=== PATIENT | male | born 1970 | race African-American/Black ===

== ENCOUNTER 2021-12-04 03:19 | Inpatient (IN) | payer SELFPAY ==
[2021-12-04 06:29] VITALS: BMI 45.8
[2021-12-04] MEDS ORDERED: Ondansetron PF 4 MG/2 ML Vial IVP PRN (08:09)
[2021-12-04] MEDS ORDERED: Enoxaparin Sodium 40 MG/0.4 ML SYRINGE SC SCH (09:00)
[2021-12-04 09:38] LABS: Anion Gap 14 mmol/L (10-20); BUN (Urea Nitrogen) 12 mg/dL (8.4-25.7); Calc. Creatinine Clearance 139 mL/min (70-130); Calcium 8.7 mg/dL (7.8-10.44); Carbon Dioxide 31 mmol/L (22-29); Cardiac Risk 3.8 (Less than 4.5); Chloride 102 mmol/L (98-107); Cholesterol 122 mg/dl (< 200 Desired); Estimated GFR 66; Glucose 155 mg/dL (70-105); HDL Cholesterol 32 mg/dL (>60 Neg Risk); LDL Cholesterol, Calculated 72 mg/dL; Sodium 144 mmol/L (136-145); Triglycerides 89 mg/dL (Less than 150)
[2021-12-04 09:50] LABS: Hemoglobin A1c 6.5 % (4.0-6.0)
[2021-12-04 09:56] LABS: Troponin I 0.563 ng/mL (< 0.028)
[2021-12-04 09:57] LABS: Potassium 2.9 mmol/L (3.5-5.1)
[2021-12-04] MEDS: Azithromycin 500 MG in Sodium Chloride 0.9% 250 ML 250 ML IVPB SCH (10:08)
[2021-12-04] MEDS: Aspirin 81 mg Enteric Coated Tablet PO SCH ×2 (10:10→10:17)
[2021-12-04] MEDS ORDERED: Potassium Chloride 20 MEQ TAB PO SCH (10:15)
[2021-12-04] MEDS: Potassium Chloride 20 MEQ in Premix Bag 1 BAG IVPB SCH ×3 (11:44→12:56)
[2021-12-04] MEDS ORDERED: Enoxaparin Sodium 100 MG/ML SYRINGE SC SCH ×2 (12:40→12:45)
[2021-12-04 12:45] LABS: Troponin I 0.593 ng/mL (< 0.028)
[2021-12-04] MEDS ORDERED: Spironolactone 25 MG TAB PO SCH (12:45)
[2021-12-04] MEDS ORDERED: Furosemide 40 MG/4 ML VIAL SLOW IVP SCH (12:45)
[2021-12-04] MEDS: Potassium Chloride 20 MEQ in Sodium Chloride 0.9% 250 ML 250 ML IV SCH ×2 (13:14→17:28)
[2021-12-04] MEDS: Acetaminophen 325 MG TAB PO PRN ×2 (15:33→20:29)
[2021-12-04 18:29] LABS: Troponin I 0.905 ng/mL (< 0.028)
[2021-12-04] MEDS: Atorvastatin Calcium 40 MG TAB PO SCH (20:29)
[2021-12-04] MEDS: Benzonatate 100 MG CAP PO SCH (20:30)
[2021-12-04] MEDS: Enoxaparin Sodium 100 MG/ML SYRINGE SC SCH (20:30)
[2021-12-04] MEDS ORDERED: guaiFENesin ER 600 MG TAB PO SCH (21:00)
[2021-12-05] MEDS: cefTRIAXone\\ROCEPHIN 1 GM in Sodium Chloride 0.9% 100 ML IVPB SCH (02:11)
[2021-12-05 05:14] LABS: #Eosinphils 0.2 thou/uL (0.0-0.7); #Lymphocytes 1.3 thou/uL (1.20-3.40); #Monocytes 0.4 thou/uL (0.11-0.59); #Neutrophils 10.5 thou/uL (1.40-6.50); %Basophils 0.2 % (0.0-1.0); %Eosinophils 1.7 % (0.0-10.0); %Lymphocytes 10.2 % (21.0-51.0); %Monocytes 3.4 % (0.0-10.0); %Neutrophils 84.5 % (42.0-75.0); Hemoglobin 12.4 g/dL (14.0-18.0); Mean Corpuscular HGB CONC 32.1 g/dL (32.0-36.0); Mean Corpuscular Hemoglobin 26.7 pg (27.0-31.0); Mean Corpuscular Volume 83.2 fL (78.0-98.0); Mean Platelet Volume 10.3 fL (7.4-10.4); Platelet Count 177 thou/uL (130-400); RBC Distribution Width 19.1 % (11.5-14.5); Red Blood Cell (RBC) Count 4.65 mill/uL (4.70-6.10); White Blood Cell (WBC) Count 12.4 thou/uL (4.8-10.8)
[2021-12-05 05:28] LABS: Anion Gap 12 mmol/L (10-20); BUN (Urea Nitrogen) 10 mg/dL (8.4-25.7); Calc. Creatinine Clearance 155 mL/min (70-130); Calcium 8.6 mg/dL (7.8-10.44); Carbon Dioxide 33 mmol/L (22-29); Chloride 102 mmol/L (98-107); Estimated GFR 75; Glucose 126 mg/dL (70-105); Potassium 3.1 mmol/L (3.5-5.1); Sodium 144 mmol/L (136-145)
[2021-12-05 05:29] LABS: Magnesium 1.6 mg/dL (1.6-2.6)
[2021-12-05] MEDS: Furosemide 20 MG/2 ML VIAL SLOW IVP SCH ×2 (05:53→15:51)
[2021-12-05] MEDS: Spironolactone 25 MG TAB PO SCH (08:29)
[2021-12-05] MEDS: Aspirin 81 mg Enteric Coated Tablet PO SCH (08:29)
[2021-12-05] MEDS: Enoxaparin Sodium 100 MG/ML SYRINGE SC SCH ×2 (08:30→21:21)
[2021-12-05] MEDS: guaiFENesin ER 600 MG TAB PO SCH ×2 (08:46→21:21)
[2021-12-05] MEDS ORDERED: Potassium Chloride 20 MEQ TAB PO SCH (09:00)
[2021-12-05] MEDS ORDERED: Carvedilol 6.25 MG TAB PO SCH (10:15)
[2021-12-05] MEDS ORDERED: Amlodipine 5 MG TAB PO SCH (10:15)
[2021-12-05] MEDS: Azithromycin 500 MG in Sodium Chloride 0.9% 250 ML 250 ML IVPB SCH (10:40)
[2021-12-05] MEDS: Benzonatate 100 MG CAP PO SCH ×3 (10:47→21:21)
[2021-12-05] MEDS: Carvedilol 6.25 MG TAB PO SCH (17:55)
[2021-12-05] MEDS: Atorvastatin Calcium 40 MG TAB PO SCH (21:21)
[2021-12-06] MEDS: cefTRIAXone\\ROCEPHIN 1 GM in Sodium Chloride 0.9% 100 ML IVPB SCH (02:08)
[2021-12-06 05:24] LABS: #Eosinphils 0.3 thou/uL (0.0-0.7); #Lymphocytes 1.4 thou/uL (1.20-3.40); #Monocytes 0.5 thou/uL (0.11-0.59); #Neutrophils 8.9 thou/uL (1.40-6.50); %Basophils 0.2 % (0.0-1.0); %Eosinophils 2.3 % (0.0-10.0); %Lymphocytes 12.5 % (21.0-51.0); %Monocytes 4.8 % (0.0-10.0); %Neutrophils 80.2 % (42.0-75.0); Hemoglobin 10.9 g/dL (14.0-18.0); Mean Corpuscular HGB CONC 32.6 g/dL (32.0-36.0); Mean Corpuscular Hemoglobin 26.8 pg (27.0-31.0); Mean Corpuscular Volume 82.3 fL (78.0-98.0); Platelet Count 181 thou/uL (130-400); RBC Distribution Width 18.6 % (11.5-14.5); Red Blood Cell (RBC) Count 4.08 mill/uL (4.70-6.10); White Blood Cell (WBC) Count 11.1 thou/uL (4.8-10.8)
[2021-12-06 05:47] LABS: Anion Gap 13 mmol/L (10-20); BUN (Urea Nitrogen) 14 mg/dL (8.4-25.7); Calc. Creatinine Clearance 131 mL/min (70-130); Calcium 8.7 mg/dL (7.8-10.44); Carbon Dioxide 31 mmol/L (22-29); Chloride 101 mmol/L (98-107); Estimated GFR 62; Glucose 153 mg/dL (70-105); Potassium 3.1 mmol/L (3.5-5.1); Sodium 142 mmol/L (136-145)
[2021-12-06] MEDS: Furosemide 20 MG/2 ML VIAL SLOW IVP SCH ×2 (06:18→15:21)
[2021-12-06] MEDS: Aspirin 81 mg Enteric Coated Tablet PO SCH (08:56)
[2021-12-06] MEDS: guaiFENesin ER 600 MG TAB PO SCH ×2 (08:56→20:57)
[2021-12-06] MEDS: Benzonatate 100 MG CAP PO SCH ×3 (08:56→20:57)
[2021-12-06] MEDS: Carvedilol 6.25 MG TAB PO SCH ×2 (08:57→18:11)
[2021-12-06] MEDS: Spironolactone 25 MG TAB PO SCH (08:57)
[2021-12-06] MEDS: Amlodipine 5 MG TAB PO SCH (08:57)
[2021-12-06] MEDS: Enoxaparin Sodium 100 MG/ML SYRINGE SC SCH (08:58)
[2021-12-06] MEDS ORDERED: Azithromycin 500 MG in Sodium Chloride 0.9% 250 ML 250 ML IVPB SCH (09:00)
[2021-12-06] MEDS ORDERED: Potassium Chloride 20 MEQ TAB PO SCH (15:00)
[2021-12-06] MEDS: Cefdinir 300 MG CAP PO SCH (20:57)
[2021-12-06] MEDS: Atorvastatin Calcium 40 MG TAB PO SCH (20:57)
[2021-12-07 04:28] LABS: #Eosinphils 0.4 thou/uL (0.0-0.7); #Lymphocytes 1.3 thou/uL (1.20-3.40); #Monocytes 0.6 thou/uL (0.11-0.59); #Neutrophils 6.3 thou/uL (1.40-6.50); %Basophils 0.3 % (0.0-1.0); %Eosinophils 4.5 % (0.0-10.0); %Lymphocytes 14.9 % (21.0-51.0); %Monocytes 6.6 % (0.0-10.0); %Neutrophils 73.7 % (42.0-75.0); Hemoglobin 11.3 g/dL (14.0-18.0); Mean Corpuscular HGB CONC 31.7 g/dL (32.0-36.0); Mean Corpuscular Hemoglobin 26.2 pg (27.0-31.0); Mean Corpuscular Volume 82.7 fL (78.0-98.0); Mean Platelet Volume 9.8 fL (7.4-10.4); Platelet Count 189 thou/uL (130-400); RBC Distribution Width 18.5 % (11.5-14.5); White Blood Cell (WBC) Count 8.6 thou/uL (4.8-10.8)
[2021-12-07 04:51] LABS: Anion Gap 12 mmol/L (10-20); BUN (Urea Nitrogen) 14 mg/dL (8.4-25.7); Calc. Creatinine Clearance 155 mL/min (70-130); Calcium 8.9 mg/dL (7.8-10.44); Carbon Dioxide 30 mmol/L (22-29); Chloride 102 mmol/L (98-107); Estimated GFR 75; Glucose 146 mg/dL (70-105); Potassium 3.4 mmol/L (3.5-5.1); Sodium 141 mmol/L (136-145)
[2021-12-07] MEDS: Furosemide 20 MG/2 ML VIAL SLOW IVP SCH (06:17)
[2021-12-07] MEDS ORDERED: Potassium Chloride 20 MEQ TAB PO SCH (08:00)
[2021-12-07] MEDS: Amlodipine 5 MG TAB PO SCH (08:47)
[2021-12-07] MEDS: Aspirin 81 mg Enteric Coated Tablet PO SCH (08:47)
[2021-12-07] MEDS: Carvedilol 6.25 MG TAB PO SCH (08:47)
[2021-12-07] MEDS: Spironolactone 25 MG TAB PO SCH (08:47)
[2021-12-07] MEDS: Cefdinir 300 MG CAP PO SCH (08:48)
[2021-12-07] MEDS: guaiFENesin ER 600 MG TAB PO SCH (08:48)
[2021-12-07] MEDS: Benzonatate 100 MG CAP PO SCH ×2 (08:48→14:15)
[2021-12-07] MEDS ORDERED: Azithromycin 250 MG TAB PO SCH (09:00)
[2021-12-07] MEDS ORDERED: Enoxaparin Sodium 40 MG/0.4 ML SYRINGE SC SCH (09:00)
[2021-12-07] MEDS ORDERED: Lisinopril 10 MG TAB PO SCH (10:15)
[2021-12-07 11:29] VITALS: BP 137/83; TEMP 97.5
[2021-12-08] MEDS ORDERED: Furosemide 40 MG TAB PO SCH (07:30)
[2021-12-08] MEDS ORDERED: Potassium Chloride 20 MEQ TAB PO SCH (08:00)
[2021-12-08] MEDS ORDERED: Lisinopril 5 MG TAB PO SCH (09:00)
== END 2021-12-07 15:10 | disposition home or self-care (01) | DRG 871 ==
LOC: 2SW 03:19 → OBSVTOIN 08:09
PROVIDERS: ADMIT Internal Medicine; ATTEND Internal Medicine
DX: A41.9 Sepsis, unspecified organism (principal); J96.01 Acute respiratory failure with hypoxia; J18.9 Pneumonia, unspecified organism; I50.33 Acute on chronic diastolic (congestive) heart failure; I21.A1 Myocardial infarction type 2; Z68.42 Body mass index [BMI] 45.0-49.9, adult; Z20.822 Contact with and (suspected) exposure to COVID-19; R65.20 Severe sepsis without septic shock; E66.01 Morbid (severe) obesity due to excess calories; E87.6 Hypokalemia; I11.0 Hypertensive heart disease with heart failure; Z98.890 Other specified postprocedural states; Z87.891 Personal history of nicotine dependence; Z83.3 Family history of diabetes mellitus; Z79.899 Other long term (current) drug therapy
CPT/HCPCS: 36415; 80048; 80061; 83036; 83735; 84145; 85025; 87070; 87205; 87804; 93005; 93010; 93306; 94640; J0456; J0696; J1650; J1940; J3480; J3490; J7050; J7620

== ENCOUNTER 2022-02-06 17:55 | Inpatient (IN) | payer SELFPAY ==
[~2022-02-06 17:55] MED LIST: Iopamidol-370 76% 500 ML 1 ML ONE
[2022-02-06 18:23] LABS: #Eosinphils 0.2 thou/uL (0.0-0.7); #Lymphocytes 1.9 thou/uL (1.20-3.40); #Monocytes 0.6 thou/uL (0.11-0.59); #Neutrophils 5.4 thou/uL (1.40-6.50); %Basophils 0.4 % (0.0-1.0); %Eosinophils 2.9 % (0.0-10.0); %Lymphocytes 23.2 % (21.0-51.0); %Monocytes 7.6 % (0.0-10.0); %Neutrophils 65.8 % (42.0-75.0); Hemoglobin 11.7 g/dL (14.0-18.0); Mean Corpuscular HGB CONC 32.6 g/dL (32.0-36.0); Mean Corpuscular Hemoglobin 27.3 pg (27.0-31.0); Mean Corpuscular Volume 83.9 fL (78.0-98.0); Mean Platelet Volume 9.6 fL (7.4-10.4); Platelet Count 215 thou/uL (130-400); RBC Distribution Width 18.2 % (11.5-14.5); Red Blood Cell (RBC) Count 4.27 mill/uL (4.70-6.10); White Blood Cell (WBC) Count 8.1 thou/uL (4.8-10.8)
[2022-02-06 18:48] LABS: ALT (SGPT) 34 U/L (8-55); AST (SGOT) 25 U/L (5-34); Albumin 3.9 g/dL (3.5-5.0); Alkaline Phosphatase 71 U/L (40-110); Anion Gap 14 mmol/L (10-20); BUN (Urea Nitrogen) 19 mg/dL (8.4-25.7); Bilirubin, Total 0.8 mg/dL (0.2-1.2); Calc. Creatinine Clearance 0 mL/min (70-130); Calcium 9.1 mg/dL (7.8-10.44); Carbon Dioxide 29 mmol/L (22-29); Chloride 103 mmol/L (98-107); Estimated GFR 56; Globulin 3.2 g/dL (2.4-3.5); Glucose 114 mg/dL (70-105); Lipase 13 U/L (8-78); Potassium 3.1 mmol/L (3.5-5.1); Protein, Total 7.1 g/dL (6.0-8.3); Sodium 143 mmol/L (136-145)
[2022-02-06] MEDS ORDERED: Digoxin 0.5 MG/2 ML AMP ONE (19:52)
[2022-02-06] MEDS ORDERED: Furosemide 40 MG/4 ML VIAL ONE (19:52)
[2022-02-06] MEDS ORDERED: Metoprolol Tartrate 5 MG/5 ML VIAL ONE (19:52)
[2022-02-06] MEDS ORDERED: Magnesium 2 GM/50 ML BAG (IN WATER) ONE (19:52)
[2022-02-06] MEDS ORDERED: Acetaminophen 325 MG TAB PO PRN (21:58)
[2022-02-06] MEDS ORDERED: Diltiazem 125 MG/25 ML ONE (21:58)
[2022-02-06] MEDS ORDERED: Ondansetron PF 4 MG/2 ML Vial IVP PRN (21:58)
[2022-02-06] MEDS ORDERED: Potassium Chloride 20 MEQ TAB ONE (21:58)
[2022-02-06] MEDS ORDERED: Diltiazem 125 MG in Sodium Chloride 0.9% 100 ML IVPB SCH (22:15)
[2022-02-06 22:21] LABS: Troponin I 0.014 ng/mL (< 0.028)
[2022-02-06 22:36] LABS: Magnesium 2.4 mg/dL (1.6-2.6)
[2022-02-07] MEDS: Heparin 10,000 UNITS/ 10 ML VIAL SLOW IVP SCH ×3 (00:30→16:22)
[2022-02-07] MEDS: Heparin 25,000 units/D5W 500 ML IVPB SCH ×2 (00:31→20:34)
[2022-02-07 04:52] LABS: #Eosinphils 0.3 thou/uL (0.0-0.7); #Lymphocytes 1.6 thou/uL (1.20-3.40); #Monocytes 0.5 thou/uL (0.11-0.59); #Neutrophils 6.3 thou/uL (1.40-6.50); %Basophils 0.5 % (0.0-1.0); %Eosinophils 3.4 % (0.0-10.0); %Lymphocytes 18.6 % (21.0-51.0); %Monocytes 6.1 % (0.0-10.0); %Neutrophils 71.4 % (42.0-75.0); Hemoglobin 12.1 g/dL (14.0-18.0); Mean Corpuscular HGB CONC 32.5 g/dL (32.0-36.0); Mean Corpuscular Hemoglobin 27.2 pg (27.0-31.0); Mean Corpuscular Volume 83.8 fL (78.0-98.0); Mean Platelet Volume 9.7 fL (7.4-10.4); Platelet Count 208 thou/uL (130-400); RBC Distribution Width 18.3 % (11.5-14.5); Red Blood Cell (RBC) Count 4.44 mill/uL (4.70-6.10); White Blood Cell (WBC) Count 8.8 thou/uL (4.8-10.8)
[2022-02-07 05:07] LABS: Anion Gap 16 mmol/L (10-20); BUN (Urea Nitrogen) 13 mg/dL (8.4-25.7); Calc. Creatinine Clearance 161 mL/min (70-130); Calcium 8.5 mg/dL (7.8-10.44); Carbon Dioxide 29 mmol/L (22-29); Chloride 103 mmol/L (98-107); Estimated GFR 76; Glucose 108 mg/dL (70-105); Magnesium 2.2 mg/dL (1.6-2.6); Sodium 145 mmol/L (136-145)
[2022-02-07] MEDS ORDERED: Furosemide 40 MG/4 ML VIAL SLOW IVP SCH (06:00)
[2022-02-07] MEDS ORDERED: Potassium Chloride 20 MEQ TAB PO SCH ×2 (09:15→17:00)
[2022-02-07] MEDS ORDERED: Electrolyte Replacement Protocol 1 EACH FS PRN (09:45)
[2022-02-07] MEDS ORDERED: Diltiazem 125 MG in Sodium Chloride 0.9% 100 ML IVPB SCH (12:51)
[2022-02-07] MEDS: Diltiazem HCl 125 MG in Premix Bag 1 BAG IVPB SCH (16:44)
[2022-02-07] MEDS: Dronedarone HCl 400 MG TAB PO SCH (17:40)
[2022-02-08] MEDS: Diltiazem HCl 125 MG in Premix Bag 1 BAG IVPB SCH (05:08)
[2022-02-08 05:46] LABS: #Eosinphils 0.2 thou/uL (0.0-0.7); #Lymphocytes 1.8 thou/uL (1.20-3.40); #Monocytes 0.7 thou/uL (0.11-0.59); #Neutrophils 7.9 thou/uL (1.40-6.50); %Basophils 0.4 % (0.0-1.0); %Eosinophils 2.1 % (0.0-10.0); %Lymphocytes 17.2 % (21.0-51.0); %Monocytes 6.2 % (0.0-10.0); %Neutrophils 74.1 % (42.0-75.0); Hemoglobin 12.2 g/dL (14.0-18.0); Mean Corpuscular HGB CONC 32.7 g/dL (32.0-36.0); Mean Corpuscular Hemoglobin 27.5 pg (27.0-31.0); Mean Corpuscular Volume 84.2 fL (78.0-98.0); Mean Platelet Volume 11.5 fL (7.4-10.4); Platelet Count 166 thou/uL (130-400); RBC Distribution Width 19.1 % (11.5-14.5); Red Blood Cell (RBC) Count 4.43 mill/uL (4.70-6.10); White Blood Cell (WBC) Count 10.7 thou/uL (4.8-10.8)
[2022-02-08 06:14] LABS: Anion Gap 15 mmol/L (10-20); BUN (Urea Nitrogen) 11 mg/dL (8.4-25.7); Calc. Creatinine Clearance 151 mL/min (70-130); Calcium 8.5 mg/dL (7.8-10.44); Carbon Dioxide 28 mmol/L (22-29); Chloride 101 mmol/L (98-107); Estimated GFR 72; Glucose 129 mg/dL (70-105); Potassium 3.1 mmol/L (3.5-5.1); Sodium 141 mmol/L (136-145)
[2022-02-08] MEDS ORDERED: Potassium Chloride 20 MEQ TAB PO SCH ×2 (06:30→14:00)
[2022-02-08] MEDS ORDERED: Magnesium 2 GM/50 ML(in water) 2 GM in Premix Bag 1 BAG IVPB SCH (06:30)
[2022-02-08] MEDS: Dronedarone HCl 400 MG TAB PO SCH ×2 (10:12→17:00)
[2022-02-08] MEDS: Furosemide 40 MG/4 ML VIAL SLOW IVP SCH (10:12)
[2022-02-08 15:57] LABS: PTT 120.2 sec (22.9-36.1)
[2022-02-08] MEDS: Heparin 25,000 units/D5W 500 ML IVPB SCH (18:20)
[2022-02-08] MEDS: Heparin 10,000 UNITS/ 10 ML VIAL SLOW IVP SCH (21:13)
[2022-02-09 03:45] LABS: Anion Gap 15 mmol/L (10-20); BUN (Urea Nitrogen) 13 mg/dL (8.4-25.7); Calc. Creatinine Clearance 128 mL/min (70-130); Calcium 8.5 mg/dL (7.8-10.44); Carbon Dioxide 26 mmol/L (22-29); Chloride 101 mmol/L (98-107); Estimated GFR 59; Glucose 165 mg/dL (70-105); Magnesium 2.1 mg/dL (1.6-2.6); Sodium 139 mmol/L (136-145)
[2022-02-09 03:50] LABS: #Eosinphils 0.2 thou/uL (0.0-0.7); #Monocytes 0.6 thou/uL (0.11-0.59); #Neutrophils 7.8 thou/uL (1.40-6.50); %Basophils 0.4 % (0.0-1.0); %Eosinophils 1.8 % (0.0-10.0); %Lymphocytes 18.8 % (21.0-51.0); %Monocytes 5.5 % (0.0-10.0); %Neutrophils 73.4 % (42.0-75.0); Hemoglobin 11.4 g/dL (14.0-18.0); Mean Corpuscular Hemoglobin 28.6 pg (27.0-31.0); Mean Corpuscular Volume 84.1 fL (78.0-98.0); Mean Platelet Volume 9.3 fL (7.4-10.4); Platelet Count 179 thou/uL (130-400); RBC Distribution Width 18.1 % (11.5-14.5); Red Blood Cell (RBC) Count 3.98 mill/uL (4.70-6.10); White Blood Cell (WBC) Count 10.6 thou/uL (4.8-10.8)
[2022-02-09 03:51] LABS: Potassium 2.9 mmol/L (3.5-5.1)
[2022-02-09] MEDS: Potassium Chloride 20 MEQ TAB PO SCH ×2 (04:10→12:04)
[2022-02-09] MEDS ORDERED: Ketamine 50 MG/ML (10ML VIAL) ONE ×2 (07:25→10:28)
[2022-02-09] MEDS ORDERED: Potassium Chloride 20 MEQ TAB PO SCH ×2 (08:00→10:47)
[2022-02-09 09:37] LABS: INR-International Normal Ratio 1.1; Prothrombin Time 14.5 sec (12.0-14.7)
[2022-02-09 09:38] LABS: PTT 40.4 sec (22.9-36.1)
[2022-02-09] MEDS ORDERED: Midazolam HCl 2 mg/2 ml Vial ONE (10:28)
[2022-02-09] MEDS ORDERED: PROPOFOL 200 MG/20 ML VIAL ONE (10:40)
[2022-02-09] MEDS ORDERED: Apixaban 5 MG TAB PO SCH ×3 (10:48→21:00)
[2022-02-09] MEDS ORDERED: Potassium Chloride 20 MEQ TAB ONE (11:17)
[2022-02-09] MEDS: Dronedarone HCl 400 MG TAB PO SCH ×2 (12:04→17:12)
[2022-02-09] MEDS: Furosemide 40 MG/4 ML VIAL SLOW IVP SCH (12:08)
[2022-02-09 17:52] LABS: Potassium 4.1 mmol/L (3.5-5.1)
[2022-02-09] MEDS ORDERED: Furosemide 20 MG/2 ML VIAL SLOW IVP SCH (22:15)
[2022-02-09 23:14] LABS: Actual Bicarbonate (HCO3a) 27.8 mEq/L (22-28); Base Excess (BEa) 3.5 mEq/L (-2.0 to +3.0); CO2 Tension 41.2 mmHg (35.0-45.0); Calcium, Ionized (arterial) 1.08 mmol/L (1.12-1.30); Carboxyhemoglobin (COHb) 1.1 gm% (0.0-3.0); Hemoglobin (Hb) 13.3 g/dL (14.0-18.0); Potassium - ABG Lab 3.37 mmol/L (3.70-5.30); pH, Arterial 7.45 (7.35-7.45)
[2022-02-09 23:18] LABS: O2 Tension (PaO2), arterial 51.8 mmHg (80.0-100.0)
[2022-02-09 23:19] LABS: Puncture Site RRA
[2022-02-09] MEDS ORDERED: methylPREDNISolone Sod Succ/PF 125 MG/2 ML VIAL IVP SCH (23:45)
[2022-02-10] MEDS ORDERED: Furosemide 20 MG/2 ML VIAL SLOW IVP SCH (01:15)
[2022-02-10 01:28] LABS: Lactic Acid 1.3 mmol/L (0.5-2.2)
[2022-02-10 01:31] LABS: #Eosinphils 0.2 thou/uL (0.0-0.7); #Lymphocytes 1.2 thou/uL (1.20-3.40); #Monocytes 0.6 thou/uL (0.11-0.59); #Neutrophils 15.1 thou/uL (1.40-6.50); %Basophils 0.2 % (0.0-1.0); %Eosinophils 0.9 % (0.0-10.0); %Lymphocytes 6.8 % (21.0-51.0); %Monocytes 3.3 % (0.0-10.0); %Neutrophils 88.8 % (42.0-75.0); Anion Gap 14 mmol/L (10-20); BUN (Urea Nitrogen) 16 mg/dL (8.4-25.7); Calc. Creatinine Clearance 127 mL/min (70-130); Calcium 8.7 mg/dL (7.8-10.44); Carbon Dioxide 25 mmol/L (22-29); Chloride 103 mmol/L (98-107); Estimated GFR 58; Glucose 150 mg/dL (70-105); Hemoglobin 12.1 g/dL (14.0-18.0); Mean Corpuscular Hemoglobin 27.8 pg (27.0-31.0); Mean Corpuscular Volume 84.3 fL (78.0-98.0); Mean Platelet Volume 9.7 fL (7.4-10.4); Platelet Count 199 thou/uL (130-400); Potassium 3.3 mmol/L (3.5-5.1); RBC Distribution Width 18.5 % (11.5-14.5); Red Blood Cell (RBC) Count 4.35 mill/uL (4.70-6.10); Sodium 139 mmol/L (136-145)
[2022-02-10 01:34] LABS: INR-International Normal Ratio 1.5; PTT 41.2 sec (22.9-36.1); Prothrombin Time 17.9 sec (12.0-14.7)
[2022-02-10 01:59] LABS: RBC Morphology Normal
[2022-02-10] MEDS ORDERED: Potassium Bicarbonate/Cit Ac 20 MEQ TAB PO SCH (02:30)
[2022-02-10] MEDS ORDERED: Potassium Chloride 20 MEQ TAB PO SCH ×2 (04:15→08:00)
[2022-02-10 04:38] LABS: Anion Gap 16 mmol/L (10-20); BUN (Urea Nitrogen) 15 mg/dL (8.4-25.7); Calc. Creatinine Clearance 127 mL/min (70-130); Calcium 8.4 mg/dL (7.8-10.44); Carbon Dioxide 25 mmol/L (22-29); Chloride 101 mmol/L (98-107); Estimated GFR 58; Glucose 176 mg/dL (70-105); Magnesium 1.9 mg/dL (1.6-2.6); Potassium 4.2 mmol/L (3.5-5.1); Sodium 138 mmol/L (136-145)
[2022-02-10] MEDS ORDERED: Magnesium 2 GM/50 ML(in water) 2 GM in Premix Bag 1 BAG IVPB SCH (05:30)
[2022-02-10 07:52] VITALS: BMI 46.7
[2022-02-10 07:56] LABS: Band 14 % (5-11); Hemoglobin 11.7 g/dL (14.0-18.0); Lymphocytes 1 % (21-51); MDiff Complete? YES; Mean Corpuscular HGB CONC 32.2 g/dL (32.0-36.0); Mean Corpuscular Hemoglobin 27.1 pg (27.0-31.0); Mean Corpuscular Volume 84.2 fL (78.0-98.0); Mean Platelet Volume 9.5 fL (7.4-10.4); Monocytes 2 % (0-10); Neutrophil 83 % (42-75); Platelet Count 205 thou/uL (130-400); Platelet Morphology Comment Appears Adequate; Polychromasia SLIGHT = 2-3 cells (100X) (0-2/hpf); RBC Distribution Width 18.3 % (11.5-14.5); Stomatocytes SLIGHT = 2-5 cells (100X) (0-1/hpf); White Blood Cell (WBC) Count 16.9 thou/uL (4.8-10.8)
[2022-02-10] MEDS ORDERED: Spironolactone 25 MG TAB PO SCH (08:00)
[2022-02-10] MEDS: Dronedarone HCl 400 MG TAB PO SCH (08:16)
[2022-02-10] MEDS: Spironolactone 25 MG TAB PO SCH (08:16)
[2022-02-10] MEDS: Furosemide 20 MG TAB PO SCH (08:17)
[2022-02-10] MEDS ORDERED: Furosemide 40 MG/4 ML VIAL SLOW IVP SCH ×2 (09:30→18:00)
[2022-02-10] MEDS ORDERED: Apixaban 5 MG TAB PO SCH ×2 (10:00→10:30)
[2022-02-10] MEDS: Amiodarone 200 MG TAB PO SCH ×2 (17:09→20:55)
[2022-02-10] MEDS: Apixaban 5 MG TAB PO SCH (20:55)
[2022-02-11 04:08] LABS: #Lymphocytes 1.2 thou/uL (1.20-3.40); #Monocytes 0.8 thou/uL (0.11-0.59); #Neutrophils 16.3 thou/uL (1.40-6.50); %Eosinophils 0.1 % (0.0-10.0); %Lymphocytes 6.6 % (21.0-51.0); %Monocytes 4.5 % (0.0-10.0); %Neutrophils 88.7 % (42.0-75.0); Hemoglobin 11.4 g/dL (14.0-18.0); Mean Corpuscular HGB CONC 32.9 g/dL (32.0-36.0); Mean Corpuscular Hemoglobin 28.2 pg (27.0-31.0); Mean Corpuscular Volume 85.5 fL (78.0-98.0); Mean Platelet Volume 9.6 fL (7.4-10.4); Platelet Count 193 thou/uL (130-400); Red Blood Cell (RBC) Count 4.04 mill/uL (4.70-6.10); White Blood Cell (WBC) Count 18.3 thou/uL (4.8-10.8)
[2022-02-11 04:32] LABS: Anion Gap 13 mmol/L (10-20); BUN (Urea Nitrogen) 26 mg/dL (8.4-25.7); Calc. Creatinine Clearance 129 mL/min (70-130); Calcium 8.6 mg/dL (7.8-10.44); Carbon Dioxide 28 mmol/L (22-29); Chloride 104 mmol/L (98-107); Estimated GFR 59; Glucose 137 mg/dL (70-105); Potassium 3.8 mmol/L (3.5-5.1); Sodium 141 mmol/L (136-145)
[2022-02-11] MEDS: Carvedilol 6.25 MG TAB PO SCH ×2 (08:56→16:51)
[2022-02-11] MEDS: Apixaban 5 MG TAB PO SCH ×2 (08:57→21:07)
[2022-02-11] MEDS: Amiodarone 200 MG TAB PO SCH ×3 (08:57→21:07)
[2022-02-11] MEDS: Spironolactone 25 MG TAB PO SCH (08:57)
[2022-02-11] MEDS: Furosemide 20 MG TAB PO SCH (08:57)
[2022-02-11] MEDS: Empagliflozin 10 MG TAB PO SCH (15:00)
[2022-02-12 04:28] LABS: #Eosinphils 0.2 thou/uL (0.0-0.7); #Lymphocytes 1.8 thou/uL (1.20-3.40); #Monocytes 0.8 thou/uL (0.11-0.59); #Neutrophils 10.6 thou/uL (1.40-6.50); %Basophils 0.3 % (0.0-1.0); %Eosinophils 1.7 % (0.0-10.0); %Lymphocytes 13.2 % (21.0-51.0); %Neutrophils 78.8 % (42.0-75.0); Anion Gap 16 mmol/L (10-20); BUN (Urea Nitrogen) 22 mg/dL (8.4-25.7); Calc. Creatinine Clearance 138 mL/min (70-130); Calcium 8.7 mg/dL (7.8-10.44); Carbon Dioxide 26 mmol/L (22-29); Chloride 104 mmol/L (98-107); Estimated GFR 65; Glucose 100 mg/dL (70-105); Mean Corpuscular HGB CONC 33.1 g/dL (32.0-36.0); Mean Corpuscular Hemoglobin 28.2 pg (27.0-31.0); Mean Corpuscular Volume 85.1 fL (78.0-98.0); Mean Platelet Volume 9.9 fL (7.4-10.4); Platelet Count 198 thou/uL (130-400); Potassium 3.8 mmol/L (3.5-5.1); RBC Distribution Width 17.9 % (11.5-14.5); Red Blood Cell (RBC) Count 3.91 mill/uL (4.70-6.10); Sodium 142 mmol/L (136-145); White Blood Cell (WBC) Count 13.4 thou/uL (4.8-10.8)
[2022-02-12] MEDS: Spironolactone 25 MG TAB PO SCH (09:25)
[2022-02-12] MEDS: Carvedilol 6.25 MG TAB PO SCH ×2 (09:25→16:37)
[2022-02-12] MEDS: Apixaban 5 MG TAB PO SCH ×2 (09:26→21:06)
[2022-02-12] MEDS: Empagliflozin 10 MG TAB PO SCH (09:26)
[2022-02-12] MEDS: Amiodarone 200 MG TAB PO SCH ×3 (09:26→21:06)
[2022-02-12] MEDS: Furosemide 20 MG TAB PO SCH (09:27)
[2022-02-12] MEDS ORDERED: Furosemide 40 MG/4 ML VIAL SLOW IVP SCH (12:15)
[2022-02-12] MEDS ORDERED: Potassium Chloride 20 MEQ TAB PO SCH (12:15)
[2022-02-13 04:49] LABS: #Eosinphils 0.3 thou/uL (0.0-0.7); #Lymphocytes 1.7 thou/uL (1.20-3.40); #Monocytes 0.8 thou/uL (0.11-0.59); #Neutrophils 7.1 thou/uL (1.40-6.50); %Basophils 0.3 % (0.0-1.0); %Eosinophils 3.1 % (0.0-10.0); %Lymphocytes 16.9 % (21.0-51.0); %Monocytes 7.8 % (0.0-10.0); Hemoglobin 11.6 g/dL (14.0-18.0); Mean Corpuscular HGB CONC 32.9 g/dL (32.0-36.0); Mean Corpuscular Hemoglobin 27.7 pg (27.0-31.0); Mean Corpuscular Volume 84.1 fL (78.0-98.0); Mean Platelet Volume 9.7 fL (7.4-10.4); Platelet Count 202 thou/uL (130-400); RBC Distribution Width 17.7 % (11.5-14.5); Red Blood Cell (RBC) Count 4.18 mill/uL (4.70-6.10); White Blood Cell (WBC) Count 9.9 thou/uL (4.8-10.8)
[2022-02-13 05:07] LABS: Hemoglobin A1c 5.9 % (4.0-6.0)
[2022-02-13 05:08] LABS: Anion Gap 14 mmol/L (10-20); BUN (Urea Nitrogen) 19 mg/dL (8.4-25.7); Calc. Creatinine Clearance 132 mL/min (70-130); Carbon Dioxide 27 mmol/L (22-29); Chloride 105 mmol/L (98-107); Estimated GFR 61; Glucose 91 mg/dL (70-105); Potassium 3.6 mmol/L (3.5-5.1); Sodium 142 mmol/L (136-145)
[2022-02-13] MEDS ORDERED: Furosemide 20 MG TAB PO SCH (09:00)
[2022-02-13] MEDS ORDERED: Amlodipine 5 MG TAB PO SCH (09:00)
[2022-02-13 09:52] VITALS: BP 177/99; TEMP 97.1
== END 2022-02-13 09:30 | disposition left against medical advice (07) | DRG 291 ==
LOC: ERS 17:55 → 2NO 21:58 → IMCU/EMU 02-10 01:30 → 2NO 02-12 15:38
PROVIDERS: ADMIT Family Medicine; ATTEND Family Medicine
PROC: 5A09357 Assistance with Respiratory Ventilation, Less than 24 Consecutive Hours, Continuous Positive Airway Pressure (ICD-10-PCS; 2022-02-06)
PROC: 5A2204Z Restoration of Cardiac Rhythm, Single (ICD-10-PCS; principal; 2022-02-09)
PROC: B24BZZ4 Ultrasonography of Heart with Aorta, Transesophageal (ICD-10-PCS; 2022-02-09)
DX: I13.0 Hypertensive heart and chronic kidney disease with heart failure and stage 1 through stage 4 chronic kidney disease, or unspecified chronic kidney disease (principal); I50.33 Acute on chronic diastolic (congestive) heart failure; J96.01 Acute respiratory failure with hypoxia; N17.9 Acute kidney failure, unspecified; R04.2 Hemoptysis; Z68.42 Body mass index [BMI] 45.0-49.9, adult; Z20.822 Contact with and (suspected) exposure to COVID-19; E66.01 Morbid (severe) obesity due to excess calories; G47.33 Obstructive sleep apnea (adult) (pediatric); E78.5 Hyperlipidemia, unspecified; E87.6 Hypokalemia; N18.2 Chronic kidney disease, stage 2 (mild); D63.1 Anemia in chronic kidney disease; I70.0 Atherosclerosis of aorta; I08.1 Rheumatic disorders of both mitral and tricuspid valves; I48.0 Paroxysmal atrial fibrillation; E11.22 Type 2 diabetes mellitus with diabetic chronic kidney disease; Z99.89 Dependence on other enabling machines and devices; Z87.01 Personal history of pneumonia (recurrent); Z79.899 Other long term (current) drug therapy; Z82.49 Family history of ischemic heart disease and other diseases of the circulatory system; Z87.891 Personal history of nicotine dependence
CPT/HCPCS: 36415; 36600; 71045; 71275; 80048; 80053; 82805; 83036; 83605; 83690; 83735; 83880; 84443; 84484; 85025; 85610; 85730; 86850; 86900; 86901; 92960; 93005; 93010; 93312; 94640; 94660; 94760; 96365; 96367; 96375; 96376; 97139; J1160; J1644; J1940; J2250; J2704; J2930; J3475; J7620; Q9967; U0003; U0005

== ENCOUNTER 2022-05-22 17:15 | Inpatient (IN) | payer SELFPAY ==
[2022-05-22] MEDS ORDERED: Diltiazem 125 MG/25 ML ONE (18:07)
[2022-05-22 18:26] LABS: #Eosinphils 0.1 thou/uL (0.0-0.7); #Lymphocytes 1.2 thou/uL (1.20-3.40); #Monocytes 0.5 thou/uL (0.11-0.59); #Neutrophils 7.8 thou/uL (1.40-6.50); %Basophils 0.5 % (0.0-1.0); %Eosinophils 0.9 % (0.0-10.0); %Lymphocytes 12.7 % (21.0-51.0); %Monocytes 5.2 % (0.0-10.0); %Neutrophils 80.6 % (42.0-75.0); Hemoglobin 12.1 g/dL (14.0-18.0); Mean Corpuscular HGB CONC 31.6 g/dL (32.0-36.0); Mean Corpuscular Hemoglobin 26.9 pg (27.0-31.0); Mean Corpuscular Volume 84.9 fl (78.0-98.0); Mean Platelet Volume 10.3 fL (7.4-10.4); Platelet Count 208 10x3/uL (130-400); RBC Distribution Width 18.8 % (11.5-14.5); White Blood Cell (WBC) Count 9.7 10x3/uL (4.8-10.8)
[2022-05-22 18:34] LABS: INR-International Normal Ratio 1.4; PTT 37.7 sec (22.9-36.1); Prothrombin Time 17.5 sec (12.0-14.7)
[2022-05-22 18:52] LABS: Bacteria/HPF None Seen HPF (None Seen); Bilirubin Negative (Negative); Blood, Urine Negative (Negative); Clarity Clear (Clear); Glucose, Urine (Dipstick) Normal (Negative); Ketone, Urine Negative (Negative); Leukocyte Negative Leu/uL (Negative); Nitrite Negative (Negative); Protein, Urine (Dipstick) 70 mg/dL (Neg-Trace); RBC/HPF 0-3 HPF (0-3); Specific Gravity, Urine 1.016 (1.002-1.036); Squamous Epithelial 0-3 HPF (0-3); WBC/HPF 0-3 HPF (0-3); pH, Urine 6.5 (5.0-9.0)
[2022-05-22 18:55] LABS: ALT (SGPT) 28 U/L (8-55); AST (SGOT) 21 U/L (5-34); Albumin 3.7 g/dL (3.5-5.0); Alkaline Phosphatase 59 U/L (40-110); Anion Gap 13 mmol/L (10-20); BUN (Urea Nitrogen) 19 mg/dL (8.4-25.7); Bilirubin, Total 1.5 mg/dL (0.2-1.2); Calc. Creatinine Clearance 0 mL/min (70-130); Calcium 8.7 mg/dL (7.8-10.44); Carbon Dioxide 28 mmol/L (22-29); Chloride 107 mmol/L (98-107); Estimated GFR 59; Globulin 2.7 g/dL (2.4-3.5); Glucose 155 mg/dL (70-105); Lipase 10 U/L (8-78); Magnesium 1.9 mg/dL (1.6-2.6); Potassium 3.1 mmol/L (3.5-5.1); Protein, Total 6.4 g/dL (6.0-8.3); Sodium 145 mmol/L (136-145)
[2022-05-22] MEDS ORDERED: Furosemide 40 MG/4 ML VIAL ONE (19:34)
[2022-05-22] MEDS ORDERED: Ondansetron PF 4 MG/2 ML Vial IVP PRN (19:55)
[2022-05-22] MEDS ORDERED: Acetaminophen 650 MG Suppository PR PRN (19:55)
[2022-05-22] MEDS ORDERED: Ondansetron ODT 4 MG TAB PO PRN (19:55)
[2022-05-22] MEDS ORDERED: Furosemide 40 MG/4 ML VIAL SLOW IVP SCH (20:00)
[2022-05-22] MEDS ORDERED: Magnesium 2 GM/50 ML(in water) 2 GM in Premix Bag 1 BAG IVPB SCH (20:00)
[2022-05-22] MEDS ORDERED: Electrolyte Replacement Protocol 1 EACH FS PRN (20:15)
[2022-05-22] MEDS ORDERED: Dextrose 50% Abboject 50 ML SYRINGE SLOW IVP PRN (20:54)
[2022-05-22] MEDS ORDERED: HumaLOG 300 UNITS/3 ML VIAL SC PRN ×2 (20:54)
[2022-05-22] MEDS ORDERED: Dextrose 5% in Water 1,000 ML IV PRN (20:54)
[2022-05-22 21:38] LABS: Troponin I Less than 0.010 ng/mL (< 0.028)
[2022-05-22] MEDS: Potassium Chloride 20 MEQ TAB PO SCH (22:51)
[2022-05-22] MEDS: Carvedilol 25 MG TAB PO SCH (23:15)
[2022-05-22] MEDS ORDERED: Potassium Chloride 20 MEQ TAB ONE (23:53)
[2022-05-23] MEDS: Potassium Chloride 20 MEQ TAB PO SCH ×2 (00:10→20:03)
[2022-05-23 01:24] LABS: Troponin I Less than 0.010 ng/mL (< 0.028)
[2022-05-23] MEDS ORDERED: Diltiazem 125 MG/25 ML ONE (03:07)
[2022-05-23 05:28] LABS: Hemoglobin A1c 5.9 % (4.0-6.0)
[2022-05-23 05:36] LABS: Hemoglobin 11.5 g/dL (14.0-18.0); Mean Corpuscular HGB CONC 32.4 g/dL (32.0-36.0); Mean Corpuscular Hemoglobin 27.2 pg (27.0-31.0); Mean Corpuscular Volume 84.1 fl (78.0-98.0); Mean Platelet Volume 10.1 fL (7.4-10.4); Platelet Count 192 10x3/uL (130-400); RBC Distribution Width 18.3 % (11.5-14.5); Red Blood Cell (RBC) Count 4.22 mill/uL (4.70-6.10); White Blood Cell (WBC) Count 9.3 10x3/uL (4.8-10.8)
[2022-05-23 05:45] LABS: Anion Gap 12 mmol/L (10-20); BUN (Urea Nitrogen) 17 mg/dL (8.4-25.7); Calc. Creatinine Clearance 0 mL/min (70-130); Calcium 8.2 mg/dL (7.8-10.44); Carbon Dioxide 31 mmol/L (22-29); Chloride 105 mmol/L (98-107); Estimated GFR 63; Glucose 134 mg/dL (70-105); Magnesium 2.2 mg/dL (1.6-2.6); Potassium 3.2 mmol/L (3.5-5.1); Sodium 145 mmol/L (136-145)
[2022-05-23] MEDS ORDERED: Furosemide 40 MG/4 ML VIAL ONE (05:48)
[2022-05-23 06:01] LABS: Eosinophils 3 % (0-10); Lymphocytes 14 % (21-51); MDiff Complete? YES; Monocytes 4 % (0-10); Neutrophil 79 % (42-75); Nucleated RBC 1 % (0); Polychromasia SLIGHT = 2-3 cells (100X) (0-2/hpf)
[2022-05-23] MEDS: Furosemide 100 MG/10 ML VIAL SLOW IVP SCH ×2 (06:04→13:55)
[2022-05-23] MEDS ORDERED: Amlodipine 10 MG TAB PO SCH (09:00)
[2022-05-23] MEDS: Carvedilol 25 MG TAB PO SCH ×2 (09:24→20:03)
[2022-05-23] MEDS ORDERED: Potassium Chloride 20 MEQ TAB PO SCH (09:30)
[2022-05-23] MEDS ORDERED: Potassium Chloride 20 MEQ TAB ONE (11:34)
[2022-05-23] MEDS: Amiodarone 200 MG TAB PO SCH ×2 (13:55→20:03)
[2022-05-23 15:55] VITALS: BMI 47.8
[2022-05-23 16:19] LABS: Amphetamine Not Detected (NotDetected); Barbiturates Screen Not Detected (NotDetected); Benzodiazepine Screen Not Detected (NotDetected); Cocaine Metabolite Screen Not Detected (NotDetected); Methadone Not Detected (NotDetected); Methamphetamine Not Detected (NotDetected); Opiate Screen Not Detected (NotDetected); Oxycodone Screen Not Detected (NotDetected); Phencyclidine (PCP) Not Detected (NotDetected); THC/Cannabinoid Screen Not Detected (NotDetected); Tricyclic Screen Not Detected (NotDetected)
[2022-05-23] MEDS ORDERED: Spironolactone 25 MG TAB PO SCH (16:30)
[2022-05-23] MEDS: Apixaban 5 MG TAB PO SCH (20:03)
[2022-05-24] MEDS: Furosemide 100 MG/10 ML VIAL SLOW IVP SCH (05:15)
[2022-05-24] MEDS ORDERED: Potassium Chloride 20 MEQ TAB PO SCH ×2 (07:45→19:15)
[2022-05-24] MEDS: Carvedilol 25 MG TAB PO SCH ×2 (08:02→20:06)
[2022-05-24] MEDS: Amiodarone 200 MG TAB PO SCH ×3 (08:02→20:06)
[2022-05-24] MEDS: Apixaban 5 MG TAB PO SCH ×2 (08:02→20:06)
[2022-05-24] MEDS: Potassium Chloride 20 MEQ TAB PO SCH ×2 (08:02→20:06)
[2022-05-24] MEDS: Spironolactone 25 MG TAB PO SCH (08:02)
[2022-05-24] MEDS ORDERED: Furosemide 40 MG/4 ML VIAL SLOW IVP SCH (08:30)
[2022-05-24 08:52] LABS: Anion Gap 14 mmol/L (10-20); BUN (Urea Nitrogen) 20 mg/dL (8.4-25.7); Calc. Creatinine Clearance 128 mL/min (70-130); Calcium 8.4 mg/dL (7.8-10.44); Carbon Dioxide 30 mmol/L (22-29); Chloride 102 mmol/L (98-107); Estimated GFR 57; Glucose 138 mg/dL (70-105); Magnesium 2.1 mg/dL (1.6-2.6); Potassium 3.2 mmol/L (3.5-5.1); Sodium 143 mmol/L (136-145)
[2022-05-24] MEDS ORDERED: Furosemide 40 MG TAB PO SCH (09:00)
[2022-05-24 14:56] LABS: Potassium 3.4 mmol/L (3.5-5.1)
[2022-05-24] MEDS ORDERED: Magnesium 2 GM/50 ML(in water) 2 GM in Premix Bag 1 BAG IVPB SCH (16:00)
[2022-05-24 17:14] LABS: Anion Gap 15 mmol/L (10-20); BUN (Urea Nitrogen) 22 mg/dL (8.4-25.7); Calc. Creatinine Clearance 127 mL/min (70-130); Calcium 8.3 mg/dL (7.8-10.44); Carbon Dioxide 29 mmol/L (22-29); Chloride 103 mmol/L (98-107); Estimated GFR 57; Glucose 98 mg/dL (70-105); Potassium 3.6 mmol/L (3.5-5.1); Sodium 143 mmol/L (136-145)
[2022-05-25 03:48] LABS: ALT (SGPT) 24 U/L (8-55); AST (SGOT) 20 U/L (5-34); Albumin 3.6 g/dL (3.5-5.0); Alkaline Phosphatase 56 U/L (40-110); Anion Gap 16 mmol/L (10-20); BUN (Urea Nitrogen) 27 mg/dL (8.4-25.7); Bilirubin, Total 0.9 mg/dL (0.2-1.2); Calc. Creatinine Clearance 116 mL/min (70-130); Calcium 8.6 mg/dL (7.8-10.44); Carbon Dioxide 27 mmol/L (22-29); Chloride 104 mmol/L (98-107); Estimated GFR 51; Globulin 2.7 g/dL (2.4-3.5); Glucose 103 mg/dL (70-105); Potassium 3.9 mmol/L (3.5-5.1); Protein, Total 6.3 g/dL (6.0-8.3); Sodium 143 mmol/L (136-145)
[2022-05-25] MEDS ORDERED: Ketamine 50 MG/ML (10ML VIAL) ONE (07:01)
[2022-05-25] MEDS ORDERED: Midazolam HCl 2 mg/2 ml Vial ONE (07:01)
[2022-05-25] MEDS ORDERED: PROPOFOL 20 ML ONE (07:06)
[2022-05-25] MEDS ORDERED: Albuterol Sulfate 1.25 MG/3 ML NEB ONE (07:58)
[2022-05-25] MEDS: Amiodarone 200 MG TAB PO SCH ×3 (09:51→20:42)
[2022-05-25] MEDS: Spironolactone 25 MG TAB PO SCH (09:52)
[2022-05-25] MEDS: Apixaban 5 MG TAB PO SCH ×2 (09:52→20:42)
[2022-05-25] MEDS: Carvedilol 25 MG TAB PO SCH ×2 (09:52→20:42)
[2022-05-25] MEDS: Potassium Chloride 20 MEQ TAB PO SCH ×2 (09:52→20:42)
[2022-05-25] MEDS: Furosemide 20 MG/2 ML VIAL SLOW IVP SCH ×2 (09:52→14:17)
[2022-05-25] MEDS ORDERED: Furosemide 20 MG/2 ML VIAL SLOW IVP SCH (17:45)
[2022-05-25] MEDS ORDERED: Simethicone Chewable 80 MG TAB PO PRN (21:59)
[2022-05-26 05:02] LABS: #Eosinphils 0.1 thou/uL (0.0-0.7); #Lymphocytes 1.2 thou/uL (1.20-3.40); #Monocytes 0.4 thou/uL (0.11-0.59); #Neutrophils 6.8 thou/uL (1.40-6.50); %Eosinophils 1.2 % (0.0-10.0); %Lymphocytes 14.1 % (21.0-51.0); %Monocytes 4.7 % (0.0-10.0); %Neutrophils 79.9 % (42.0-75.0); Hemoglobin 12.3 g/dL (14.0-18.0); Mean Corpuscular Hemoglobin 27.2 pg (27.0-31.0); Mean Corpuscular Volume 85.2 fl (78.0-98.0); Mean Platelet Volume 10.2 fL (7.4-10.4); Platelet Count 217 10x3/uL (130-400); RBC Distribution Width 18.3 % (11.5-14.5); Red Blood Cell (RBC) Count 4.52 mill/uL (4.70-6.10); White Blood Cell (WBC) Count 8.5 10x3/uL (4.8-10.8)
[2022-05-26 05:19] LABS: Anion Gap 15 mmol/L (10-20); BUN (Urea Nitrogen) 28 mg/dL (8.4-25.7); Calc. Creatinine Clearance 114 mL/min (70-130); Carbon Dioxide 31 mmol/L (22-29); Chloride 102 mmol/L (98-107); Estimated GFR 50; Glucose 124 mg/dL (70-105); Magnesium 2.3 mg/dL (1.6-2.6); Sodium 144 mmol/L (136-145)
[2022-05-26] MEDS: Furosemide 20 MG/2 ML VIAL SLOW IVP SCH ×2 (06:02→15:22)
[2022-05-26] MEDS: Amiodarone 200 MG TAB PO SCH ×3 (07:47→19:27)
[2022-05-26] MEDS: Potassium Chloride 20 MEQ TAB PO SCH ×2 (07:47→19:28)
[2022-05-26] MEDS: Apixaban 5 MG TAB PO SCH ×2 (07:47→19:28)
[2022-05-26] MEDS: Spironolactone 25 MG TAB PO SCH (07:47)
[2022-05-26] MEDS: Carvedilol 25 MG TAB PO SCH ×2 (07:47→19:28)
[2022-05-26] MEDS: hydrALAZINE 25 MG TAB PO SCH ×3 (08:56→19:27)
[2022-05-26] MEDS ORDERED: Sodium Chloride 0.65% Nasal 44 ML BOT EA NARE PRN (11:32)
[2022-05-27] MEDS: Furosemide 20 MG/2 ML VIAL SLOW IVP SCH ×2 (06:07→14:54)
[2022-05-27 06:11] LABS: Anion Gap 16 mmol/L (10-20); BUN (Urea Nitrogen) 22 mg/dL (8.4-25.7); Calc. Creatinine Clearance 142 mL/min (70-130); Calcium 8.9 mg/dL (7.8-10.44); Carbon Dioxide 27 mmol/L (22-29); Chloride 104 mmol/L (98-107); Estimated GFR 66; Glucose 104 mg/dL (70-105); Potassium 3.5 mmol/L (3.5-5.1); Sodium 143 mmol/L (136-145)
[2022-05-27] MEDS ORDERED: Spironolactone 25 MG TAB PO SCH (08:45)
[2022-05-27] MEDS ORDERED: Lisinopril 10 MG TAB PO SCH (09:00)
[2022-05-27] MEDS ORDERED: Furosemide 20 MG/2 ML VIAL SLOW IVP SCH (09:15)
[2022-05-27] MEDS: Spironolactone 25 MG TAB PO SCH (09:37)
[2022-05-27] MEDS: Apixaban 5 MG TAB PO SCH ×2 (09:43→20:20)
[2022-05-27] MEDS: Amiodarone 200 MG TAB PO SCH ×2 (09:43→20:20)
[2022-05-27] MEDS: hydrALAZINE 25 MG TAB PO SCH ×3 (09:44→20:21)
[2022-05-27] MEDS: Potassium Chloride 20 MEQ TAB PO SCH ×2 (09:44→20:21)
[2022-05-27] MEDS: Valsartan 80 MG TAB PO SCH (09:44)
[2022-05-27] MEDS: Carvedilol 25 MG TAB PO SCH ×2 (09:44→20:21)
[2022-05-27] MEDS ORDERED: Potassium Chloride 20 MEQ TAB PO SCH (11:45)
[2022-05-28] MEDS: Acetaminophen 325 MG TAB PO PRN ×2 (04:04→09:08)
[2022-05-28] MEDS: Furosemide 20 MG/2 ML VIAL SLOW IVP SCH (05:49)
[2022-05-28 08:24] LABS: #Eosinphils 0.2 thou/uL (0.0-0.7); #Lymphocytes 0.8 thou/uL (1.20-3.40); #Monocytes 0.6 thou/uL (0.11-0.59); %Basophils 0.1 % (0.0-1.0); %Eosinophils 2.2 % (0.0-10.0); %Monocytes 8.2 % (0.0-10.0); %Neutrophils 79.6 % (42.0-75.0); Hemoglobin 12.2 g/dL (14.0-18.0); Mean Corpuscular HGB CONC 31.6 g/dL (32.0-36.0); Mean Corpuscular Volume 85.3 fl (78.0-98.0); Mean Platelet Volume 10.5 fL (7.4-10.4); Platelet Count 199 10x3/uL (130-400); RBC Distribution Width 18.5 % (11.5-14.5); Red Blood Cell (RBC) Count 4.54 mill/uL (4.70-6.10); White Blood Cell (WBC) Count 7.6 10x3/uL (4.8-10.8)
[2022-05-28 08:40] LABS: Anion Gap 13 mmol/L (10-20); BUN (Urea Nitrogen) 19 mg/dL (8.4-25.7); Calc. Creatinine Clearance 137 mL/min (70-130); Calcium 8.8 mg/dL (7.8-10.44); Carbon Dioxide 31 mmol/L (22-29); Chloride 104 mmol/L (98-107); Estimated GFR 63; Glucose 114 mg/dL (70-105); Potassium 3.4 mmol/L (3.5-5.1); Sodium 145 mmol/L (136-145)
[2022-05-28] MEDS ORDERED: Potassium Chloride 20 MEQ TAB PO SCH (08:45)
[2022-05-28] MEDS: Apixaban 5 MG TAB PO SCH ×2 (09:09→22:01)
[2022-05-28] MEDS: Spironolactone 25 MG TAB PO SCH (09:09)
[2022-05-28] MEDS ORDERED: Valsartan 80 MG TAB PO SCH ×2 (10:00→21:00)
[2022-05-28] MEDS: Carvedilol 25 MG TAB PO SCH ×2 (10:11→22:02)
[2022-05-28] MEDS: Amiodarone 200 MG TAB PO SCH ×2 (10:12→22:01)
[2022-05-28] MEDS: Potassium Chloride 20 MEQ TAB PO SCH ×2 (10:12→22:02)
[2022-05-28] MEDS: Valsartan 80 MG TAB PO SCH (10:15)
[2022-05-28] MEDS: hydrALAZINE 25 MG TAB PO SCH (10:16)
[2022-05-29 06:03] LABS: Anion Gap 12 mmol/L (10-20); BUN (Urea Nitrogen) 20 mg/dL (8.4-25.7); Calc. Creatinine Clearance 122 mL/min (70-130); Calcium 8.8 mg/dL (7.8-10.44); Carbon Dioxide 32 mmol/L (22-29); Chloride 105 mmol/L (98-107); Estimated GFR 56; Glucose 105 mg/dL (70-105); Magnesium 2.4 mg/dL (1.6-2.6); Potassium 3.7 mmol/L (3.5-5.1); Sodium 145 mmol/L (136-145)
[2022-05-29 07:55] VITALS: BP 165/89; TEMP 97.4
[2022-05-29] MEDS ORDERED: Valsartan 80 MG TAB PO SCH (09:00)
[2022-05-29] MEDS: Amiodarone 200 MG TAB PO SCH (09:31)
[2022-05-29] MEDS: Spironolactone 25 MG TAB PO SCH (09:32)
[2022-05-29] MEDS: Apixaban 5 MG TAB PO SCH (09:32)
[2022-05-29] MEDS: Carvedilol 25 MG TAB PO SCH (09:32)
[2022-05-29] MEDS: Potassium Chloride 20 MEQ TAB PO SCH (09:33)
[2022-05-30] MEDS ORDERED: Furosemide 40 MG TAB PO SCH (07:30)
== END 2022-05-29 11:32 | disposition home or self-care (01) | DRG 291 ==
LOC: ERS 17:15 → ERHOLD 19:24 → IMCU/EMU 05-23 13:17 → 2SW 05-25 20:00 → NEURO 05-26 22:11
PROVIDERS: ADMIT Internal Medicine; ATTEND Internal Medicine
PROC: 5A2204Z Restoration of Cardiac Rhythm, Single (ICD-10-PCS; principal; 2022-05-25)
PROC: B24BZZ4 Ultrasonography of Heart with Aorta, Transesophageal (ICD-10-PCS; 2022-05-25)
DX: I13.0 Hypertensive heart and chronic kidney disease with heart failure and stage 1 through stage 4 chronic kidney disease, or unspecified chronic kidney disease (principal); I50.43 Acute on chronic combined systolic (congestive) and diastolic (congestive) heart failure; J96.01 Acute respiratory failure with hypoxia; Z68.42 Body mass index [BMI] 45.0-49.9, adult; N17.9 Acute kidney failure, unspecified; Z20.822 Contact with and (suspected) exposure to COVID-19; E87.6 Hypokalemia; E83.42 Hypomagnesemia; E66.01 Morbid (severe) obesity due to excess calories; G47.33 Obstructive sleep apnea (adult) (pediatric); D53.9 Nutritional anemia, unspecified; N18.2 Chronic kidney disease, stage 2 (mild); R94.5 Abnormal results of liver function studies; K76.1 Chronic passive congestion of liver; I08.1 Rheumatic disorders of both mitral and tricuspid valves; E11.22 Type 2 diabetes mellitus with diabetic chronic kidney disease; I70.0 Atherosclerosis of aorta; I48.0 Paroxysmal atrial fibrillation; Z99.89 Dependence on other enabling machines and devices; Z79.01 Long term (current) use of anticoagulants; Z79.899 Other long term (current) drug therapy
CPT/HCPCS: 36415; 36416; 71045; 80048; 80053; 80306; 81003; 81015; 83036; 83690; 83735; 83880; 84484; 85025; 85610; 85730; 87040; 92960; 93005; 93010; 93306; 93312; 94640; 96374; 96375; J1940; J2250; J2704; J3475; J7620; U0003; U0005

== ENCOUNTER 2022-09-21 20:16 | Emergency (ER) | payer SELFPAY | END 2022-09-21 21:27 | LOC: ERS 20:16 | DX: Z53.21 Procedure and treatment not carried out due to patient leaving prior to being seen by health care provider (principal) ==

== ENCOUNTER 2022-10-02 12:23 | Emergency (ER) | payer SELFPAY ==
[2022-10-02] MEDS ORDERED: Acetaminophen 500 MG TAB ONE (14:26)
[2022-10-02 14:43] LABS: #Basophils 0.1 thou/uL (0.0-0.2); #Eosinphils 0.4 thou/uL (0.0-0.7); #Lymphocytes 1.9 thou/uL (1.20-3.40); #Neutrophils 4.3 thou/uL (1.40-6.50); %Basophils 1.3 % (0.0-1.0); %Eosinophils 4.8 % (0.0-10.0); %Lymphocytes 25.1 % (21.0-51.0); %Monocytes 12.9 % (0.0-10.0); %Neutrophils 55.9 % (42.0-75.0); Hemoglobin 12.9 g/dL (14.0-18.0); Mean Corpuscular HGB CONC 34.3 g/dL (32.0-36.0); Mean Corpuscular Hemoglobin 29.9 pg (27.0-31.0); Mean Corpuscular Volume 86.9 fl (78.0-98.0); Mean Platelet Volume 10.4 fL (7.4-10.4); Platelet Count 170 10x3/uL (130-400); Red Blood Cell (RBC) Count 4.31 mill/uL (4.70-6.10); White Blood Cell (WBC) Count 7.6 10x3/uL (4.8-10.8)
[2022-10-02] MEDS ORDERED: Cyclobenzaprine 10 MG TAB ONE (14:57)
[2022-10-02] MEDS ORDERED: predniSONE 20 MG TAB ONE (15:06)
[2022-10-02 15:56] LABS: Calcium 9.6 mg/dL (7.8-10.44); Chloride 104 mmol/L (98-107); Potassium 4.6 mmol/L (3.5-5.1); Sodium 142 mmol/L (136-145)
[2022-10-02 15:57] LABS: Globulin 2.6 g/dL (2.4-3.5); Glucose 111 mg/dL (70-105); Protein, Total 6.6 g/dL (6.0-8.3)
[2022-10-02 15:58] LABS: Anion Gap 16 mmol/L (10-20); Carbon Dioxide 27 mmol/L (22-29)
[2022-10-02 15:59] LABS: Bilirubin, Total 0.6 mg/dL (0.2-1.2)
[2022-10-02 16:00] LABS: Alkaline Phosphatase 43 U/L (40-110)
[2022-10-02 16:01] LABS: BUN (Urea Nitrogen) 37 mg/dL (8.4-25.7); Calc. Creatinine Clearance 0 mL/min (70-130); Estimated GFR 35
[2022-10-02 16:02] LABS: AST (SGOT) 14 U/L (5-34)
[2022-10-02 16:03] LABS: ALT (SGPT) 19 U/L (8-55); Lipase 30 U/L (8-78); Magnesium 2.3 mg/dL (1.6-2.6)
== END 2022-10-02 17:33 | disposition home or self-care (01) ==
LOC: ERS 12:23
DX: I48.91 Unspecified atrial fibrillation (principal); M54.50 Low back pain, unspecified; R79.89 Other specified abnormal findings of blood chemistry; I11.0 Hypertensive heart disease with heart failure; I50.9 Heart failure, unspecified
CPT/HCPCS: 71045; 80053; 83690; 83735; 83880; 84484; 85025; 93005; 96360; 96361; J7512

== ENCOUNTER 2022-10-09 11:10 | Inpatient (IN) | payer SELFPAY ==
[2022-10-09 11:56] LABS: #Basophils 0.1 thou/uL (0.0-0.2); #Eosinphils 0.1 thou/uL (0.0-0.7); #Monocytes 0.7 thou/uL (0.11-0.59); #Neutrophils 4.8 thou/uL (1.40-6.50); %Basophils 0.6 % (0.0-1.0); %Eosinophils 1.2 % (0.0-10.0); %Lymphocytes 20.4 % (21.0-51.0); %Monocytes 9.6 % (0.0-10.0); %Neutrophils 61.9 % (42.0-75.0); Hemoglobin 11.6 g/dL (14.0-18.0); Mean Corpuscular HGB CONC 32.5 g/dL (32.0-36.0); Mean Corpuscular Hemoglobin 28.9 pg (27.0-31.0); Mean Corpuscular Volume 88.8 fl (78.0-98.0); Mean Platelet Volume 10.6 fL (7.4-10.4); Platelet Count 190 10x3/uL (130-400); RBC Distribution Width 21.1 % (11.5-14.5); Red Blood Cell (RBC) Count 4.02 mill/uL (4.70-6.10); White Blood Cell (WBC) Count 7.7 10x3/uL (4.8-10.8)
[2022-10-09 12:04] LABS: Reflex for Review?? NO
[2022-10-09] MEDS ORDERED: Ketorolac Tromethamine 30 MG/ML VIAL ONE (12:24)
[2022-10-09 12:28] LABS: Calcium 8.9 mg/dL (7.8-10.44); Chloride 106 mmol/L (98-107); Potassium 4.2 mmol/L (3.5-5.1); Sodium 141 mmol/L (136-145)
[2022-10-09] MEDS ORDERED: Metoprolol Tartrate 5 MG/5 ML VIAL ONE (12:35)
[2022-10-09 13:13] LABS: ALT (SGPT) 16 U/L (8-55); AST (SGOT) 17 U/L (5-34); Albumin 3.9 g/dL (3.5-5.0); Alkaline Phosphatase 43 U/L (40-110); Anion Gap 16 mmol/L (10-20); BUN (Urea Nitrogen) 28 mg/dL (8.4-25.7); Bilirubin, Total 0.7 mg/dL (0.2-1.2); Calc. Creatinine Clearance 0 mL/min (70-130); Carbon Dioxide 22 mmol/L (22-29); Estimated GFR 37; Glucose 144 mg/dL (70-105); Magnesium 2.1 mg/dL (1.6-2.6); Protein, Total 6.9 g/dL (6.0-8.3)
[2022-10-09] MEDS ORDERED: Metoprolol Tartrate 5 MG/5 ML VIAL IVP PRN (13:47)
[2022-10-09] MEDS ORDERED: HYDROcodone/Acetaminophen 5/325 mg Tablet PO PRN (13:52)
[2022-10-09] MEDS ORDERED: Dextrose 5% in Water 1,000 ML IV PRN (13:53)
[2022-10-09] MEDS ORDERED: Dextrose 50% Abboject 50 ML SYRINGE SLOW IVP PRN (13:53)
[2022-10-09] MEDS ORDERED: Insulin Regular 300 UNITS/3 ML VIAL SC PRN (13:53)
[2022-10-09 14:29] LABS: #Basophils 0.1 thou/uL (0.0-0.2); #Eosinphils 0.1 thou/uL (0.0-0.7); #Monocytes 0.9 thou/uL (0.11-0.59); %Basophils 0.8 % (0.0-1.0); %Lymphocytes 22.7 % (21.0-51.0); %Monocytes 10.7 % (0.0-10.0); %Neutrophils 57.4 % (42.0-75.0); Hemoglobin 11.8 g/dL (14.0-18.0); Mean Corpuscular HGB CONC 32.4 g/dL (32.0-36.0); Mean Corpuscular Hemoglobin 28.4 pg (27.0-31.0); Mean Corpuscular Volume 87.7 fl (78.0-98.0); Mean Platelet Volume 10.8 fL (7.4-10.4); Platelet Count 184 10x3/uL (130-400); RBC Distribution Width 21.2 % (11.5-14.5); Red Blood Cell (RBC) Count 4.15 mill/uL (4.70-6.10); White Blood Cell (WBC) Count 8.7 10x3/uL (4.8-10.8)
[2022-10-09 14:48] LABS: Anion Gap 16 mmol/L (10-20); BUN (Urea Nitrogen) 10 mg/dL (8.4-25.7); Calc. Creatinine Clearance 0 mL/min (70-130); Carbon Dioxide 23 mmol/L (22-29); Chloride 106 mmol/L (98-107); Estimated GFR 40; Glucose 103 mg/dL (70-105); Potassium 4.4 mmol/L (3.5-5.1); Sodium 141 mmol/L (136-145)
[2022-10-09 15:23] VITALS: BMI 47.2
[2022-10-09 16:11] LABS: Troponin I 0.012 ng/mL (< 0.028)
[2022-10-09] MEDS: Furosemide 40 MG TAB PO SCH (19:58)
[2022-10-09] MEDS: Apixaban 5 MG TAB PO SCH (19:59)
[2022-10-09] MEDS: Ascorbic Acid 500 mg Chewable Tablet PO SCH (19:59)
[2022-10-09] MEDS: Acetaminophen 325 MG TAB PO PRN (20:40)
[2022-10-10] MEDS: Acetaminophen 325 MG TAB PO PRN ×2 (04:06→14:29)
[2022-10-10 05:00] LABS: #Basophils 0.1 thou/uL (0.0-0.2); #Eosinphils 0.1 thou/uL (0.0-0.7); #Monocytes 0.7 thou/uL (0.11-0.59); #Neutrophils 4.7 thou/uL (1.40-6.50); %Basophils 0.8 % (0.0-1.0); %Eosinophils 1.8 % (0.0-10.0); %Lymphocytes 21.9 % (21.0-51.0); %Monocytes 9.4 % (0.0-10.0); %Neutrophils 59.5 % (42.0-75.0); Hemoglobin 10.6 g/dL (14.0-18.0); Mean Corpuscular HGB CONC 31.6 g/dL (32.0-36.0); Mean Corpuscular Hemoglobin 27.9 pg (27.0-31.0); Mean Corpuscular Volume 88.2 fl (78.0-98.0); Mean Platelet Volume 10.9 fL (7.4-10.4); Platelet Count 161 10x3/uL (130-400); RBC Distribution Width 21.2 % (11.5-14.5); White Blood Cell (WBC) Count 7.8 10x3/uL (4.8-10.8)
[2022-10-10 05:11] LABS: Hemoglobin A1c 6.7 % (4.0-6.0)
[2022-10-10 05:18] LABS: Manual Diff?? YES
[2022-10-10 05:25] LABS: Anion Gap 13 mmol/L (10-20); BUN (Urea Nitrogen) 28 mg/dL (8.4-25.7); Calc. Creatinine Clearance 97 mL/min (70-130); Calcium 8.8 mg/dL (7.8-10.44); Carbon Dioxide 25 mmol/L (22-29); Chloride 106 mmol/L (98-107); Estimated GFR 41; Glucose 90 mg/dL (70-105); Potassium 3.8 mmol/L (3.5-5.1); Sodium 140 mmol/L (136-145)
[2022-10-10 05:50] LABS: Anisocytosis SLIGHT = 6-15 cells HPF (0-5); CellaVision Operator ID lab.abc; Eosinophils 1 % (0-10); Lymphocytes 23 % (21-51); Monocytes 10 % (0-10); Myelocyte 1 % (0-0); Neutrophil 66 % (42-75); Platelet Morphology Comment Platelets Normal; Polychromasia SLIGHT = 2-3 cells HPF (0-2); RBC Morphology Within Normal Limits; Smudge Cells 3.9 %; Total Cell Count 102
[2022-10-10] MEDS: Apixaban 5 MG TAB PO SCH (09:00)
[2022-10-10] MEDS ORDERED: Amiodarone 200 MG TAB PO SCH (09:00)
[2022-10-10] MEDS ORDERED: Spironolactone 25 MG TAB PO SCH (09:00)
[2022-10-10] MEDS: Ascorbic Acid 500 mg Chewable Tablet PO SCH (10:54)
[2022-10-10] MEDS: Furosemide 40 MG TAB PO SCH (10:54)
[2022-10-10] MEDS ORDERED: Methocarbamol 500 MG TAB PO PRN (13:25)
[2022-10-10] MEDS ORDERED: Lidocaine 4% Patch TD SCH (13:30)
[2022-10-10 16:26] VITALS: BP 117/60; TEMP 97.8
[2022-10-10] MEDS ORDERED: Transdermal Patch Removal TOP SCH (21:00)
[2022-10-11] MEDS ORDERED: Lidocaine 4% Patch TD SCH (09:00)
== END 2022-10-10 18:58 | disposition home or self-care (01) | DRG 309 ==
LOC: ERS 11:10 → 2SW 15:15 → OBSVTOIN 10-10 13:06
PROVIDERS: ADMIT Internal Medicine; ATTEND Internal Medicine
DX: I48.0 Paroxysmal atrial fibrillation (principal); I13.0 Hypertensive heart and chronic kidney disease with heart failure and stage 1 through stage 4 chronic kidney disease, or unspecified chronic kidney disease; I50.32 Chronic diastolic (congestive) heart failure; Z68.42 Body mass index [BMI] 45.0-49.9, adult; I48.92 Unspecified atrial flutter; E66.01 Morbid (severe) obesity due to excess calories; G47.33 Obstructive sleep apnea (adult) (pediatric); N18.2 Chronic kidney disease, stage 2 (mild); E11.22 Type 2 diabetes mellitus with diabetic chronic kidney disease; M54.30 Sciatica, unspecified side; I08.1 Rheumatic disorders of both mitral and tricuspid valves; Z79.01 Long term (current) use of anticoagulants; Z79.899 Other long term (current) drug therapy
CPT/HCPCS: 36415; 36416; 71045; 80048; 80053; 83036; 83735; 83880; 84484; 85025; 93005; 93010; 93306; G0378; J1885